=== PATIENT | female | born 1965 | race Two or more races ===

== ENCOUNTER 2016-12-17 09:21 | Day surgery (SDC) | payer BC ==
[~2016-12-17 09:21] MED LIST: FENTANYL 250 MCG/5 ML AMP IV PRN; LACTATED RINGERS 1,000 ML IV SCH; MIDAZOLAM HCL 5 MG/5 ML VIAL IV PRN
[2016-12-17] MEDS ORDERED: IV START KIT ONE (09:27)
[2016-12-17] MEDS ORDERED: LACTATED RINGERS 1,000 ML ONE (09:27)
[2016-12-17] MEDS ORDERED: PROPOFOL 60 ML IV ONE (11:14)
--- NOTE | 2016-12-22 11:03 | CT ---
DIAGNOSTIC CT COLONOGRAPHY HISTORY: Incomplete colonoscopy. Following rectal intubation, gaseous insufflation was performed, and low dose CT imaging was performed prone, supine, and right lateral decubitus positioning for purposes of CT colonography. 3-dimensional fly through imaging was also reviewed on a dedicated workstation. COMPARISON: None. RECTUM AND SIGMOID COLON: Tortuous sigmoid colon. No dominant mass or polyp noted.. TRANSVERSE AND DESCENDING COLON: Notable tortuosity. No dominant mass or polyp noted.. ASCENDING COLON AND CECUM: No dominant mass or polyp noted. The ileocecal valve is identified, with fatty change. Gas fills the appendix. ADDITIONAL FINDINGS: Evidence of prior cholecystectomy. Right paracentral disc protrusion at L5-S1. IMPRESSION: C-RADS C1. Normal colon, with significant redundancy and tortuosity. If CT colonography is contemplated is a future surveillance, consider follow-up in 5 years. C-RADS E2: Right paracentral disc protrusion at L5-S1.
== END 2016-12-17 12:30 | disposition home or self-care (01) ==
LOC: SDC 09:21
PROVIDERS: ATTEND Internal Medicine Gastroenterology
PROC: 0DJD8ZZ Inspection of Lower Intestinal Tract, Via Natural or Artificial Opening Endoscopic (ICD-10-PCS; principal; 2016-12-17)
PROC: BD24ZZZ Computerized Tomography (CT Scan) of Colon (ICD-10-PCS; 2016-12-17)
DX: Z12.11 Encounter for screening for malignant neoplasm of colon (principal); R10.32 Left lower quadrant pain; Q43.8 Other specified congenital malformations of intestine; Z80.0 Family history of malignant neoplasm of digestive organs; F32.9 Major depressive disorder, single episode, unspecified; Z88.2 Allergy status to sulfonamides; Z88.1 Allergy status to other antibiotic agents